=== PATIENT | male | born 1975 | race African-American/Black ===

== ENCOUNTER 2019-11-20 09:21 | Inpatient (IN) | payer OTHER, SELFPAY ==
[2019-11-20 11:51] VITALS: BMI 22.4
[2019-11-21 06:36] VITALS: BP 102/70; PULSE 78; RESP 16; TEMP 36.4; O2SAT 99
[2019-11-21 07:00] VITALS: BMI 45.0
[2019-11-21] MEDS: PARoxetine HCL 20 MG TABLET PO (10:28)
[2019-11-21] MEDS: hydrOXYzine HCL 50 MG TABLET 100 MG PO ×2 (10:29→20:22)
[2019-11-21] MEDS: QUEtiapine Fumarate 100 MG TABLET PO ×2 (10:29→20:22)
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
[2019-11-21 15:33] VITALS: BP 108/66; PULSE 67
[2019-11-21 16:57] VITALS: BP 118/71; PULSE 70; TEMP 37
[2019-11-21] MEDS: traZODone HCL 100 MG TABLET 300 MG PO (20:23)
[2019-11-22 06:12] VITALS: BP 122/69; PULSE 78; RESP 16; TEMP 36.8; O2SAT 98
[2019-11-22] MEDS: hydrOXYzine HCL 50 MG TABLET 100 MG PO ×2 (08:49→21:25)
[2019-11-22] MEDS: QUEtiapine Fumarate 100 MG TABLET PO ×2 (08:49→21:26)
[2019-11-22] MEDS: PARoxetine HCL 20 MG TABLET PO (08:49)
[2019-11-22 12:00] VITALS: BP 120/80; PULSE 87
--- NOTE | 2019-11-22 15:15 | PC.NURSE ---
PT SIGNED A 3 DAY NOTICE ON , UP ON 11/25
[2019-11-22 16:00] VITALS: BP 110/74; PULSE 74; TEMP 37
--- NOTE | 2019-11-22 19:20 | P.PNPSI_ITS ---
Assessment & Plan Assessment & Plan (1) Major depression: Qualifiers: Major depression recurrence: recurrent Active/Remission status: currently active Major depression episode severity: severe Psychotic features: without psychotic features Qualified Code(s): F33.2 - Major depressive disorder, recurrent severe without psychotic features Status: Acute Code(s): F32.9 - Major depressive disorder, single episode, unspecified Assessment and Plan: Improved in his mood CT medication without change (2) Suicidal ideation: Status: Resolved Code(s): R45.851 - Suicidal ideations Greater than 50% of the session was spent on counseling and/or coordination of care Patient educated on: diagnosis Informed Consent: further education needed Reason for contiued inpatient stay Substantial Risk for: rapid decompensation and med/psych decompensation Subjective Subjective Date of Service: 11/22/19 Reason For Visit: MAJOR DEPRESSIVE DISORDER Subjective Notes: Conditional Voluntary and 3 Day (Exp 11/26/19) Interim History: Mike reports that he is feeling well and he has no complaints. He wants to go home. He has no Si Medication Compliance: Yes Side effects from medications: No Attending Groups: No Review of Systems Acute medical concerns: No Medical Review of Systems: unchanged Mental Status Exam Mental Status Exam Patient Appearance: Well Grooomed Patient Orientation: Person Patient Behavior: Appropriate, Passive, Avoidant and Good Eye Contact Mood Description: Calm and Apprehensive Affect Description: Calm and Apprehensive Patient Cognition Impaired: No Ability to Follow Directions: Fair Speech Pattern: Clear, Normal for Patient (Seen with an granite worker) and Soft- Spoken Memory Description: Intact Hallucinations: None Delusions: Not Present Thought Process: Intact Thought Content: positive for Intact, positive for Poverty of Content, positive for Suicidal Ideation (NONE) and positive for Homicidal Ideation (None) Judgement: Fair Judgement and Insight: Limited Diagnostics Vital Signs (24Hr): Vital Signs - 24 hr 11/22/19 06:12 11/22/19 12:00 11/22/19 16:00 Temperature 98.3 F 98.6 F Pulse Rate 78 87 74 Respiratory Rate 16 Blood Pressure 122/69 120/80 110/74 Pulse Oximetry 98 Body Mass Index 45.0 Medications Medications Current Medications Generic Name Dose Route Start Last Admin Trade Name Freq PRN Reason Stop Dose Admin Acetaminophen 650 mg 11/21/19 00:00 Acetaminophen 325 Mg Tablet PO Q6H PRN HeadachePain, Mild (Scale 1-3) Al Hydroxide/Mg Hydroxide 30 ml 11/21/19 00:00 Magnesium Hydrox/Alum Hydrox 30 Ml Oral.Susp PO Q6H PRN Heartburn/Nausea Hydroxyzine HCl 100 mg 11/21/19 09:00 11/22/19 08:49 Hydroxyzine Hcl 50 Mg Tablet PO 100 mg BID JASWINDER Administration Magnesium Hydroxide 30 ml 11/21/19 00:00 Milk Of Magnesia 30 Ml Oral.Susp PO Q24H PRN Constipation Nicotine Polacrilex 2 mg 11/21/19 00:00 Nicotine Polacrilex 2 Mg Gum BUCCAL Q2H PRN Nicotine Cravings Paroxetine HCl 20 mg 11/21/19 09:00 11/22/19 08:49 Paroxetine Hcl 20 Mg Tablet PO 20 mg DAILY JASWINDER Administration Quetiapine Fumarate 100 mg 11/21/19 09:00 11/22/19 08:49 Quetiapine Fumarate 100 Mg Tablet PO 100 mg BID JASWINDER Administration Trazodone HCl 300 mg 11/21/19 21:00 11/21/19 20:23 Trazodone Hcl 100 Mg Tablet PO 300 mg BEDTIME JASWINDER Administration Allergies Allergies Allergy/AdvReac Type Severity Reaction Status Date / Time No Known Allergies* Allergy Uncoded 11/19/19 20:09
[2019-11-22 20:00] VITALS: BP 118/79; PULSE 85; TEMP 37.2
[2019-11-22] MEDS: traZODone HCL 100 MG TABLET 300 MG PO (21:25)
--- NOTE | 2019-11-23 | XR_ITS ---
EXAMINATION: XR ABDOMEN KUB CLINICAL INDICATION: Question obstruction. COMPARISON: None TECHNIQUE: AP view of the abdomen. FINDINGS: There is a nonobstructive bowel gas pattern. There is moderate stool burden in the colon. No abnormal calcifications are demonstrated. The lung bases are clear. No bony abnormality is evident. IMPRESSION: No obstruction. Moderate stool burden.
[2019-11-23 07:26] VITALS: BP 129/76; PULSE 70; RESP 18; TEMP 36.8
[2019-11-23] MEDS: Magnesium Hydrox/Alum Hydrox 30 ML ORAL.SUSP PO (09:23)
[2019-11-23] MEDS: hydrOXYzine HCL 50 MG TABLET 100 MG PO ×2 (09:23→22:52)
[2019-11-23] MEDS: QUEtiapine Fumarate 100 MG TABLET PO ×2 (09:24→22:57)
[2019-11-23] MEDS: Acetaminophen 325 MG TABLET 650 MG PO ×2 (09:24→15:57)
[2019-11-23] MEDS: PARoxetine HCL 20 MG TABLET PO (09:25)
[2019-11-23] MEDS: Milk of Magnesia 30 ML ORAL.SUSP PO (09:27)
[2019-11-23 12:00] VITALS: BP 131/86; PULSE 92; TEMP 36.8
--- NOTE | 2019-11-23 12:14 | HO.PSYCHPN ---
Assessment & Plan Assessment & Plan (1) Major depression: Qualifiers: Active/Remission status: currently active Major depression episode severity: severe Major depression recurrence: recurrent Psychotic features: without psychotic features Qualified Code(s): F33.2 - Major depressive disorder, recurrent severe without psychotic features Status: Acute Code(s): F32.9 - Major depressive disorder, single episode, unspecified Assessment and Plan: continue current meds (2) Substance abuse: Status: Acute Code(s): F19.10 - Other psychoactive substance abuse, uncomplicated Assessment and Plan: denies any craving or withdrawl (3) Suicidal ideation: Status: Resolved Code(s): R45.851 - Suicidal ideations Assessment and Plan: denies current si thinking- (4) Constipation: Status: Acute Code(s): K59.00 - Constipation, unspecified Assessment and Plan: kub - ok n/v inc tem reviewed hx of gi issues had work up and was to be taking gerd med but wasn't taking yet- Greater than 50% of the session was spent on counseling and/or coordination of care Subjective Subjective Date of Service: 11/23/19 Reason For Visit: MAJOR DEPRESSIVE DISORDER Subjective Notes: 3 Day Interim History: Pt not feeling well physically , not eating, fever and had been complaining of n/v and consitpation Medication Compliance: Yes Side effects from medications: Yes (? constipation /gi se) Attending Groups: Intermittent (not very engaged in mileu- mostly somatic complaints) Mental Status Exam Mental Status Exam Narrative: denies current si/hi/ah Patient Appearance: Well Grooomed Patient Orientation: Person, Place and Time Level of Consciousness: Awake Patient Behavior: Appropriate, Cooperative and Anxious Mood Description: Appropriate and Anxious Affect Description: Depressed Patient Cognition Impaired: No Ability to Follow Directions: Good Speech Pattern: Clear Memory Description: Normal for Patient Hallucinations: None Delusions: Not Present Thought Process: Intact Thought Content: positive for Poverty of Content (somatic focus- not feeling well) Depressive Symptoms: Changes in Appetite (loss of appetite today) and Unexplained Stomach Pain (kub was moderate stool - decrease apt, nause, no bm several days) Judgement: Fair Diagnostics Vital Signs (24Hr): Vital Signs - 24 hr 11/22/19 16:00 11/22/19 20:00 11/23/19 07:26 Temperature 98.6 F 99.0 F 98.2 F Pulse Rate 74 85 70 Respiratory Rate 18 Blood Pressure 110/74 118/79 129/76 Body Mass Index 45.0 Labs Results: 11/24/19 07:52 11/24/19 07:52 Medications Medications Current Medications Generic Name Dose Route Start Last Admin Trade Name Freq PRN Reason Stop Dose Admin Acetaminophen 650 mg 11/21/19 00:00 11/23/19 09:24 Acetaminophen 325 Mg Tablet PO 650 mg Q6H PRN Administration HeadachePain, Mild (Scale 1-3) Al Hydroxide/Mg Hydroxide 30 ml 11/21/19 00:00 11/23/19 09:23 Magnesium Hydrox/Alum Hydrox 30 Ml Oral.Susp PO 30 ml Q6H PRN Administration Heartburn/Nausea Hydroxyzine HCl 100 mg 11/21/19 09:00 11/23/19 09:23 Hydroxyzine Hcl 50 Mg Tablet PO 100 mg BID JASWINDER Administration Magnesium Hydroxide 30 ml 11/21/19 00:00 11/23/19 09:27 Milk Of Magnesia 30 Ml Oral.Susp PO 30 ml Q24H PRN Administration Constipation Nicotine Polacrilex 2 mg 11/21/19 00:00 Nicotine Polacrilex 2 Mg Gum BUCCAL Q2H PRN Nicotine Cravings Paroxetine HCl 20 mg 11/21/19 09:00 11/23/19 09:25 Paroxetine Hcl 20 Mg Tablet PO 20 mg DAILY JASWINDER Administration Quetiapine Fumarate 100 mg 11/21/19 09:00 11/23/19 09:24 Quetiapine Fumarate 100 Mg Tablet PO 100 mg BID JASWINDER Administration Trazodone HCl 300 mg 11/21/19 21:00 11/22/19 21:25 Trazodone Hcl 100 Mg Tablet PO 300 mg BEDTIME JASWINDER Administration Allergies Allergies Allergy/AdvReac Type Severity Reaction Status Date / Time No Known Allergies* Allergy Uncoded 11/19/19 20:09
[2019-11-23 16:00] VITALS: BP 123/88; PULSE 77; TEMP 37.1
[2019-11-23 19:30] VITALS: BP 142/86; PULSE 77; TEMP 37.2
[2019-11-23] MEDS: Omeprazole 20 MG CAPSULE.DR PO (20:04)
[2019-11-23 21:57] VITALS: BP 127/88; PULSE 64
[2019-11-23 22:35] VITALS: BP 128/90; BP 137/80; PULSE 72; PULSE 87
[2019-11-23] MEDS: traZODone HCL 100 MG TABLET 300 MG PO (22:56)
[2019-11-24 00:25] LABS: SARS COV2 PCR INHOUSE NEGATIVE (Negative)
[2019-11-24 05:20] VITALS: BP 143/91; PULSE 109; RESP 16; TEMP 37.2; O2SAT 96
[2019-11-24 08:00] VITALS: BP 128/84; PULSE 77; RESP 16; TEMP 36.6; O2SAT 98
[2019-11-24 08:20] LABS: MANUAL DIFF FLAG NO
[2019-11-24 08:35] LABS: Basophils Percent Auto 0.3 % (0-2); Eosinophils Percent Auto 0.1 % (0-4); Hematocrit 43.3 % (42-52); Hemoglobin 14.6 g/dl (14.0-18.0); Imm Gran Abs Auto 0.01 X10*3/uL (0.00-0.03); Imm Gran Pct Auto 0.1 % (0.0-0.4); Lymphocytes Absolute Auto 1.5 X10*3/uL (1.2-4.9); Lymphocytes Percent Auto 22.1 % (20-40); Mean Corpuscular HGB Conc 33.7 g/dl (31.0-36.0); Mean Corpuscular Hemoglobin 28.7 pg (27.0-33.0); Mean Corpuscular Volume 85.2 fL (80-98); Mean Platelet Volume 10.3 fL (9.4-12.4); Monocytes Absolute Auto 0.9 X10*3/uL (0.1-1.2); Monocytes Percent Auto 13.4 % (2-11); Neutrophils Absolute Auto 4.4 X10*3/uL (2.0-8.3); Platelet Count 262 X10*3/uL (160-400); Red Blood Count 5.08 X10*6/uL (4.60-5.80); Red Cell Distribution Width 12.8 % (11.0-16.0); White Blood Count 6.8 X10*3/uL (4.8-10.8)
[2019-11-24 08:59] LABS: Anion Gap 12 (12-20); Blood Urea Nitrogen 18 mg/dL (9-16); Calcium 10.2 mg/dL (8.4-10.2); Carbon Dioxide 33 mmol/L (22-29); Chloride 97 mmol/L (96-108); Cholesterol 215 mg/dL; Creatinine Clr Calc Pharmacy 91.3; Estimated Glomerular Filt Rate > 60; Glucose Random 105 mg/dL (60-115); HDL Cholesterol 47 mg/dL; LDL Cholesterol Calculated 138 mg/dl; Potassium 4.2 mmol/l (3.3-5.1); Sodium 138 mmol/L (135-145); Triglycerides 153 mg/dL
[2019-11-24 09:03] LABS: Estimated Average Glucose 103 mg/dL; Hemoglobin A1c % 5.2 %
--- NOTE | 2019-11-24 09:46 | P.CONIM_ITS ---
History of Present Illness Data of Consult Service Date: 11/24/19 Requesting physician: Kathryn Marti Primary Care Provider: None Physician HPI Reason for consult: fever, GI symptoms This is a 44-year-old Faroese-speaking male admitted to for management of suicidal ideation. The hospitalists were asked to evaluate the patient due to fever and GI symptoms. The patient reports he had several episodes of vomiting yesterday with associated generalized weakness. He denies any associated abdominal pain, fever, chills. He has no associated diarrhea. In fact he denies of bowel movement for the past 1 week. He reports not eating well for the past several days. Lab work was obtained is within normal limits but no leukocytosis. Patient did have low-grade fever of 99.0 overnight which has resolved. He has received Zofran and vomiting is improving. He reports feeling better today. Review of Systems Review of Systems: Yes all other systems are reviewed and are negative Constitutional: Constitutional: Denies chills and Denies fever(s) Cardiovascular: Cardiovascular: Denies chest pain Gastrointestinal: Gastrointestinal: Denies abdominal pain [facility] Medical History (Updated 11/24/19 @ 10:01 by CHESTER Morris) Major depression Substance abuse Functional capacity: independent ambulation Pertinent family history: Mother has a history of diabetes Surgical History (Updated 11/24/19 @ 09:58 by CHESTER Morris) No history of previous surgery Social History (Updated 11/24/19 @ 09:59 by CHESTER Morris) Substance Use Type: Marijuana service: No Sexual orientation: Straight/Heterosexual Meds Allergies Allergy/AdvReac Type Severity Reaction Status Date / Time No Known Allergies* Allergy Uncoded 11/19/19 20:09 Home Medications Medication Instructions Recorded Confirmed Type buprenorphine-naloxone [Suboxone] 1 film BUCCAL DAILY 11/20/19 11/20/19 History hydroxyzine pamoate [Vistaril] 100 mg PO BID 11/20/19 11/20/19 History paroxetine HCl [Paxil] 20 mg PO DAILY 11/20/19 11/20/19 History quetiapine [Seroquel] 100 mg PO BID 11/20/19 11/20/19 History trazodone 300 mg PO BEDTIME 11/20/19 11/20/19 History Physical Exam Vital Signs and Narrative: Vital Signs: Last Vital Signs Temp 97.8 F 11/24/19 08:00 Pulse 77 11/24/19 08:00 Resp 16 11/24/19 08:00 BP 128/84 11/24/19 08:00 Pulse Ox 98 11/24/19 08:00 Body Mass Index 45.0 Const: Nutritional Appearance: well nourished Orientation/consciousness: patient oriented x3 HENMT: Head: Yes normocephalic and Yes atraumatic Eyes: Sclerae: sclerae normal Chest: Chest palpation & inspection: normal inspection of the chest Resp: Effort & Inspection: normal respiratory effort and no respiratory distress Auscultation: clear to auscultation bilaterally Cardio: Rate: regular rate Rhythm: regular rhythm GI: Palpation (GI): Soft to palpation and nontender Neuro: General: patient oriented x3 Cranial nerves: Yes CN's II-XII intact bilaterally and Yes Bilaterally intact EOM present Results Labs Labs: Laboratory Tests 11/23/19 11/24/19 11/24/19 Unknown 07:52 07:52 WBC 6.8 RBC 5.08 Hgb 14.6 Hct 43.3 MCV 85.2 MCH 28.7 MCHC 33.7 RDW 12.8 Plt Count 262 MPV 10.3 Immature Gran % (Auto) 0.1 Neut % (Auto) 64.0 Lymph % (Auto) 22.1 [place] % (Auto) 13.4 H Eos % (Auto) 0.1 Baso % (Auto) 0.3 Neut # (Auto) 4.4 Lymph # (Auto) 1.5 [place] # (Auto) 0.9 Eos # (Auto) 0.0 Baso # (Auto) 0.0 Abs Immat Gran (auto) 0.01 Absolute Nucleated RBC 0.000 Nucleated RBC % (auto) 0.0 Sodium 138 Potassium 4.2 Chloride 97 Carbon Dioxide 33 H Anion Gap 12 BUN 18 H Creatinine 1.20 Estim Creat Clear Calc 91.3 Estimated GFR > 60 Random Glucose 105 Estimat Average Glucose Hemoglobin A1c % Calcium 10.2 Triglycerides 153 Cholesterol 215 LDL Cholesterol, Calc 138 HDL Cholesterol 47 Coronavirus (PCR) NEGATIVE 11/24/19 07:52 WBC RBC Hgb Hct MCV MCH MCHC RDW Plt Count MPV Immature Gran % (Auto) Neut % (Auto) Lymph % (Auto) [place] % (Auto) Eos % (Auto) Baso % (Auto) Neut # (Auto) Lymph # (Auto) [place] # (Auto) Eos # (Auto) Baso # (Auto) Abs Immat Gran (auto) Absolute Nucleated RBC Nucleated RBC % (auto) Sodium Potassium Chloride Carbon Dioxide Anion Gap BUN Creatinine Estim Creat Clear Calc Estimated GFR Random Glucose Estimat Average Glucose 103 Hemoglobin A1c % 5.2 Calcium Triglycerides Cholesterol LDL Cholesterol, Calc HDL Cholesterol Coronavirus (PCR) Imaging Abdominal x-ray: Radiologist's impression: IMPRESSION: No obstruction. Moderate stool burden. Assessment and Plan (1) Constipation: Qualifiers: Constipation type: unspecified constipation type Qualified Code(s): K59.00 - Constipation, unspecified Status: Acute This is a 44-year-old male admitted to for management of depression suicidal ideation with complaints of vomiting and constipation. vomiting. improving. continue p.r.n. Zofran encourage p.o. fluid as tolerated constipation No abdominal pain KUB shows moderate stool without obstruction Miralax daily, continue MOM prn thank you for allowing us to participate in the care of this patient. This case was discussed with Dr. Davison date of service 11/24/2019
[2019-11-24] MEDS: Milk of Magnesia 30 ML ORAL.SUSP PO (10:10)
[2019-11-24] MEDS: PARoxetine HCL 20 MG TABLET PO (10:10)
[2019-11-24] MEDS: hydrOXYzine HCL 50 MG TABLET 100 MG PO ×2 (10:10→20:30)
[2019-11-24] MEDS: QUEtiapine Fumarate 100 MG TABLET PO ×2 (10:10→20:30)
[2019-11-24] MEDS: polyethylene glycoL 3350 17 GM POWD.PACK PO (10:13)
--- NOTE | 2019-11-24 12:34 | P.PNPSI_ITS ---
Assessment & Plan Assessment & Plan (1) Substance abuse: Status: Acute Code(s): F19.10 - Other psychoactive substance abuse, uncomplicated Assessment and Plan: denies cravings (2) Major depression: Qualifiers: Active/Remission status: currently active Major depression episode severity: severe Major depression recurrence: recurrent Psychotic features: without psychotic features Qualified Code(s): F33.2 - Major depressive disorder, recurrent severe without psychotic features Status: Acute Code(s): F32.9 - Major depressive disorder, single episode, unspecified Assessment and Plan: si resolved (3) Constipation: Qualifiers: Constipation type: unspecified constipation type Qualified Code(s): K59.00 - Constipation, unspecified Status: Acute Code(s): K59.00 - Constipation, unspecified Assessment and Plan: will fu with gi/pcp will take mirlax Greater than 50% of the session was spent on counseling and/or coordination of care Subjective Subjective Date of Service: 11/24/19 Reason For Visit: MAJOR DEPRESSIVE DISORDER Subjective Notes: 3 Day Interim History: Felling better today, still not eating much but zofran helping n/v seen by hospitalist, no acute abd, no covid Medication Compliance: Yes Side effects from medications: Yes (constipation) Attending Groups: No Review of Systems Acute medical concerns: Yes fever, decrease appetite no longer n/v , started on miralax by hospitalist Review of Systems: see above Mental Status Exam Mental Status Exam Narrative: appropriate- Patient Appearance: Appropriate Patient Orientation: Person, Place, Time and Situation Level of Consciousness: Awake and Alert Patient Behavior: Appropriate Mood Description: Calm (looking forward do dc tomorrow and seeing children) Affect Description: Calm Patient Cognition Impaired: No Ability to Follow Directions: Good Speech Pattern: Clear Memory Description: Intact Hallucinations: None Thought Process: Intact Thought Content: positive for Intact and positive for Goal Oriented Depressive Symptoms: Changes in Appetite and Unexplained Stomach Pain Judgement: Fair Diagnostics Vital Signs (24Hr): Vital Signs - 24 hr 11/23/19 16:00 11/23/19 19:30 11/23/19 21:57 Temperature 98.7 F 99.0 F Pulse Rate 77 77 64 Respiratory Rate Blood Pressure 123/88 142/86 H 127/88 Pulse Oximetry 11/23/19 22:35 11/24/19 05:20 11/24/19 08:00 Temperature 99 F 97.8 F Pulse Rate 87 109 H 77 Respiratory Rate 16 16 Blood Pressure 137/80 143/91 H 128/84 Pulse Oximetry 96 98 Body Mass Index Labs Results: 11/24/19 07:52 11/24/19 07:52 Labs: Laboratory Results - last 48 hr 11/23/19 11/24/19 11/24/19 Unknown 07:52 07:52 WBC 6.8 RBC 5.08 Hgb 14.6 Hct 43.3 MCV 85.2 MCH 28.7 MCHC 33.7 RDW 12.8 Plt Count 262 MPV 10.3 Immature Gran % (Auto) 0.1 Neut % (Auto) 64.0 Lymph % (Auto) 22.1 [place] % (Auto) 13.4 H Eos % (Auto) 0.1 Baso % (Auto) 0.3 Neut # (Auto) 4.4 Lymph # (Auto) 1.5 [place] # (Auto) 0.9 Eos # (Auto) 0.0 Baso # (Auto) 0.0 Abs Immat Gran (auto) 0.01 Absolute Nucleated RBC 0.000 Nucleated RBC % (auto) 0.0 Sodium 138 Potassium 4.2 Chloride 97 Carbon Dioxide 33 H Anion Gap 12 BUN 18 H Creatinine 1.20 Estim Creat Clear Calc 91.3 Estimated GFR > 60 Random Glucose 105 Estimat Average Glucose Hemoglobin A1c % Calcium 10.2 Triglycerides 153 Cholesterol 215 LDL Cholesterol, Calc 138 HDL Cholesterol 47 Coronavirus (PCR) NEGATIVE 11/24/19 07:52 WBC RBC Hgb Hct MCV MCH MCHC RDW Plt Count MPV Immature Gran % (Auto) Neut % (Auto) Lymph % (Auto) [place] % (Auto) Eos % (Auto) Baso % (Auto) Neut # (Auto) Lymph # (Auto) [place] # (Auto) Eos # (Auto) Baso # (Auto) Abs Immat Gran (auto) Absolute Nucleated RBC Nucleated RBC % (auto) Sodium Potassium Chloride Carbon Dioxide Anion Gap BUN Creatinine Estim Creat Clear Calc Estimated GFR Random Glucose Estimat Average Glucose 103 Hemoglobin A1c % 5.2 Calcium Triglycerides Cholesterol LDL Cholesterol, Calc HDL Cholesterol Coronavirus (PCR) Medications Medications Current Medications Generic Name Dose Route Start Last Admin Trade Name Freq PRN Reason Stop Dose Admin Acetaminophen 650 mg 11/21/19 00:00 11/23/19 15:57 Acetaminophen 325 Mg Tablet PO 650 mg Q6H PRN Administration HeadachePain, Mild (Scale 1-3) Al Hydroxide/Mg Hydroxide 30 ml 11/21/19 00:00 11/23/19 09:23 Magnesium Hydrox/Alum Hydrox 30 Ml Oral.Susp PO 30 ml Q6H PRN Administration Heartburn/Nausea Hydroxyzine HCl 100 mg 11/21/19 09:00 11/24/19 10:10 Hydroxyzine Hcl 50 Mg Tablet PO 100 mg BID JASWINDER Administration Magnesium Citrate 150 ml 11/23/19 19:49 Magnesium Citrate 300 Ml Solution PO BID PRN constipation Magnesium Hydroxide 30 ml 11/21/19 00:00 11/24/19 10:10 Milk Of Magnesia 30 Ml Oral.Susp PO 30 ml Q24H PRN Administration Constipation Nicotine Polacrilex 2 mg 11/21/19 00:00 Nicotine Polacrilex 2 Mg Gum BUCCAL Q2H PRN Nicotine Cravings Ondansetron HCl 4 mg 11/23/19 13:33 11/24/19 08:51 Ondansetron Odt 4 Mg Tab.Rapdis TRANSLINGU 4 mg Q6H PRN Administration nausea Paroxetine HCl 20 mg 11/21/19 09:00 11/24/19 10:10 Paroxetine Hcl 20 Mg Tablet PO 20 mg DAILY JASWINDER Administration Polyethylene Glycol 17 gm 11/24/19 10:15 11/24/19 10:13 Polyethylene Glycol 3350 17 Gm Powd.Pack PO 17 gm DAILY JASWINDER Administration Prochlorperazine 25 mg 11/23/19 23:17 Prochlorperazine 25 Mg Supp.Rect [place] Q12H PRN nausea/vomiting Quetiapine Fumarate 100 mg 11/21/19 09:00 11/24/19 10:10 Quetiapine Fumarate 100 Mg Tablet PO 100 mg BID JASWINDER Administration Trazodone HCl 300 mg 11/21/19 21:00 11/23/19 22:56 Trazodone Hcl 100 Mg Tablet PO 300 mg BEDTIME JASWINDER Administration Allergies Allergies Allergy/AdvReac Type Severity Reaction Status Date / Time No Known Allergies* Allergy Uncoded 11/19/19 20:09
[2019-11-24 16:00] VITALS: BP 119/89; PULSE 106; TEMP 36.8
[2019-11-24 18:45] VITALS: BP 119/89; PULSE 106; RESP 16; TEMP 36.8; O2SAT 99
[2019-11-24] MEDS: traZODone HCL 100 MG TABLET 300 MG PO (20:30)
[2019-11-25 06:45] VITALS: BP 145/87; PULSE 102; RESP 18; TEMP 36.7
[2019-11-25] MEDS: hydrOXYzine HCL 50 MG TABLET 100 MG PO ×2 (09:03→22:09)
[2019-11-25] MEDS: PARoxetine HCL 20 MG TABLET PO (09:04)
[2019-11-25] MEDS: QUEtiapine Fumarate 100 MG TABLET PO ×2 (09:04→22:09)
--- NOTE | 2019-11-25 09:42 | P.PNPSI_ITS ---
Assessment & Plan Assessment & Plan (1) Substance abuse: Status: Acute Code(s): F19.10 - Other psychoactive substance abuse, uncomplicated Assessment and Plan: Refer to suboxone (2) Major depression: Qualifiers: Major depression recurrence: recurrent Active/Remission status: currently active Major depression episode severity: severe Psychotic features: without psychotic features Qualified Code(s): F33.2 - Major depressive disorder, recurrent severe without psychotic features Status: Acute Code(s): F32.9 - Major depressive disorder, single episode, unspecified Assessment and Plan: CT medications Greater than 50% of the session was spent on counseling and/or coordination of care Subjective Subjective Date of Service: 11/25/19 Reason For Visit: MAJOR DEPRESSIVE DISORDER Subjective Notes: 3 Day Interim History: Mike was disappointed that he was not being DC. This was because there was no collateral from his family. He has been in behavioral control, and has been taking his medications. He is asking for a referral to a suboxone clnic. Medication Compliance: Yes Side effects from medications: No Attending Groups: Intermittent Review of Systems Acute medical concerns: No Medical Review of Systems: unchanged Mental Status Exam Mental Status Exam Patient Appearance: Well Grooomed Patient Orientation: Person and Place Level of Consciousness: Awake Patient Behavior: Appropriate Mood Description: Calm Affect Description: Calm Patient Cognition Impaired: No Ability to Follow Directions: Fair Speech Pattern: Clear Memory Description: Intact Hallucinations: None Thought Process: Intact Thought Content: positive for Suicidal Ideation (No) and positive for Homicidal Ideation (No) Judgement: Fair Diagnostics Vital Signs (24Hr): Vital Signs - 24 hr 11/24/19 16:00 11/24/19 18:45 11/25/19 06:45 Temperature 98.3 F 98.3 F 98.0 F Pulse Rate 106 H 106 H 102 H Respiratory Rate 16 18 Blood Pressure 119/89 119/89 145/87 H Pulse Oximetry 99 Body Mass Index 45.0 Labs Results: 11/24/19 07:52 11/24/19 07:52 Labs: Laboratory Results - last 48 hr 11/23/19 11/24/19 11/24/19 Unknown 07:52 07:52 WBC 6.8 RBC 5.08 Hgb 14.6 Hct 43.3 MCV 85.2 MCH 28.7 MCHC 33.7 RDW 12.8 Plt Count 262 MPV 10.3 Immature Gran % (Auto) 0.1 Neut % (Auto) 64.0 Lymph % (Auto) 22.1 [place] % (Auto) 13.4 H Eos % (Auto) 0.1 Baso % (Auto) 0.3 Neut # (Auto) 4.4 Lymph # (Auto) 1.5 [place] # (Auto) 0.9 Eos # (Auto) 0.0 Baso # (Auto) 0.0 Abs Immat Gran (auto) 0.01 Absolute Nucleated RBC 0.000 Nucleated RBC % (auto) 0.0 Sodium 138 Potassium 4.2 Chloride 97 Carbon Dioxide 33 H Anion Gap 12 BUN 18 H Creatinine 1.20 Estim Creat Clear Calc 91.3 Estimated GFR > 60 Random Glucose 105 Estimat Average Glucose Hemoglobin A1c % Calcium 10.2 Triglycerides 153 Cholesterol 215 LDL Cholesterol, Calc 138 HDL Cholesterol 47 Coronavirus (PCR) NEGATIVE 11/24/19 07:52 WBC RBC Hgb Hct MCV MCH MCHC RDW Plt Count MPV Immature Gran % (Auto) Neut % (Auto) Lymph % (Auto) [place] % (Auto) Eos % (Auto) Baso % (Auto) Neut # (Auto) Lymph # (Auto) [place] # (Auto) Eos # (Auto) Baso # (Auto) Abs Immat Gran (auto) Absolute Nucleated RBC Nucleated RBC % (auto) Sodium Potassium Chloride Carbon Dioxide Anion Gap BUN Creatinine Estim Creat Clear Calc Estimated GFR Random Glucose Estimat Average Glucose 103 Hemoglobin A1c % 5.2 Calcium Triglycerides Cholesterol LDL Cholesterol, Calc HDL Cholesterol Coronavirus (PCR) Medications Medications Current Medications Generic Name Dose Route Start Last Admin Trade Name Freq PRN Reason Stop Dose Admin Acetaminophen 650 mg 11/21/19 00:00 11/23/19 15:57 Acetaminophen 325 Mg Tablet PO 650 mg Q6H PRN Administration HeadachePain, Mild (Scale 1-3) Al Hydroxide/Mg Hydroxide 30 ml 11/21/19 00:00 11/23/19 09:23 Magnesium Hydrox/Alum Hydrox 30 Ml Oral.Susp PO 30 ml Q6H PRN Administration Heartburn/Nausea Hydroxyzine HCl 100 mg 11/21/19 09:00 11/25/19 09:03 Hydroxyzine Hcl 50 Mg Tablet PO 100 mg BID JASWINDER Administration Magnesium Citrate 150 ml 11/23/19 19:49 Magnesium Citrate 300 Ml Solution PO BID PRN constipation Magnesium Hydroxide 30 ml 11/21/19 00:00 11/24/19 10:10 Milk Of Magnesia 30 Ml Oral.Susp PO 30 ml Q24H PRN Administration Constipation Nicotine Polacrilex 2 mg 11/21/19 00:00 Nicotine Polacrilex 2 Mg Gum BUCCAL Q2H PRN Nicotine Cravings Ondansetron HCl 4 mg 11/23/19 13:33 11/24/19 08:51 Ondansetron Odt 4 Mg Tab.Rapdis TRANSLINGU 4 mg Q6H PRN Administration nausea Paroxetine HCl 20 mg 11/21/19 09:00 11/25/19 09:04 Paroxetine Hcl 20 Mg Tablet PO 20 mg DAILY JASWINDER Administration Polyethylene Glycol 17 gm 11/24/19 10:15 11/25/19 09:03 Polyethylene Glycol 3350 17 Gm Powd.Pack PO Not Given DAILY JASWINDER Prochlorperazine 25 mg 11/23/19 23:17 Prochlorperazine 25 Mg Supp.Rect DE Q12H PRN nausea/vomiting Quetiapine Fumarate 100 mg 11/21/19 09:00 11/25/19 09:04 Quetiapine Fumarate 100 Mg Tablet PO 100 mg BID JASWINDER Administration Trazodone HCl 300 mg 11/21/19 21:00 11/24/19 20:30 Trazodone Hcl 100 Mg Tablet PO 300 mg BEDTIME JASWINDER Administration Allergies Allergies Allergy/AdvReac Type Severity Reaction Status Date / Time No Known Allergies* Allergy Uncoded 11/19/19 20:09
[2019-11-25 12:00] VITALS: BP 121/85; PULSE 89
[2019-11-25 16:00] VITALS: BP 110/76; RESP 16; O2SAT 97
[2019-11-25] MEDS: traZODone HCL 100 MG TABLET 300 MG PO (22:09)
[2019-11-26 05:15] VITALS: BP 119/77; PULSE 136; RESP 16; TEMP 36.9; O2SAT 99
[2019-11-26 07:17] VITALS: PULSE 78; RESP 16; O2SAT 99
[2019-11-26 09:25] LABS: Estimated Average Glucose 103 mg/dL; Hemoglobin A1c % 5.2 %
[2019-11-26] MEDS: hydrOXYzine HCL 50 MG TABLET 100 MG PO (09:33)
[2019-11-26] MEDS: PARoxetine HCL 20 MG TABLET PO (09:33)
[2019-11-26] MEDS: QUEtiapine Fumarate 100 MG TABLET PO (11:07)
[2019-11-26 11:27] LABS: Cholesterol 222 mg/dL; HDL Cholesterol 52 mg/dL; LDL Cholesterol Calculated 138 mg/dl; Triglycerides 162 mg/dL
--- NOTE | 2019-11-28 20:03 | P.DS_ITS ---
DS: Providers Provider Date of admission: 11/20/19 09:21 Primary care physician: None Physician Attending physician on admission: Whitney Espinal Consults: 11/20/19 23:40 Consult to Crisis Routine Reason for consultation: si Has provider been notified: Yes 11/23/19 21:54 Consult to Hospitalist Stat Consulting Provider: Physician,Inpatient Reason for consultation: pt with fever, weak, gi sys Attending physician on discharge: Whitney Espinal Anticipated date of discharge: 11/26/19 DS: Diagnosis Discharge Diagnosis (1) Substance abuse: Status: Acute Problem details: Patient will call the suboxone clinic to re-start suboxone if he chooses. (2) Major depression: Status: Acute Problem details: Mood is much improved Discharge Plan Discharge Patient Disposition: Home, Self-Care Referrals: Paulina Crowe (therapist) [Other] - 11/28/19 12:00 pm (En la oficina) Lalitha (psychiatrist) [Other] - 12/04/19 1:00 pm (En la oficina) DR.LUCIO SIMON [Other] - 11/27/19 3:00 pm [facility] [Other] (Call to set up suboxone) [facility] [Other] (Call to set up Suboxone) Sharon Simon PA [Physician Aviation Technician] - Discharge Medications: Continued hydroxyzine pamoate 100 mg Capsule 100 mg PO BID Qty: 60 RF: 0 quetiapine [Seroquel] 100 mg Tablet 100 mg PO BID Qty: 60 RF: 0 paroxetine HCl [Paxil] 20 mg Tablet 20 mg PO DAILY Qty: 30 RF: 0 trazodone 300 mg Tablet 300 mg PO BEDTIME 30 Days Qty: 0 RF: 0 Discontinued buprenorphine-naloxone [Suboxone] 8-2 mg Film 1 film BUCCAL DAILY RF: 0 Discharge Orders: Discharge Order (Routine); Ordered 11/26/19 Ordered By: Whitney Espinal Diet: advance to your usual diet Activity on Discharge: As tolerated Stand Alone Forms: Community Support Discharge Date/Time: 11/26/19 13:26 Visit Report Forms: Patient Portal Discharge page Care Plan Goals: Reduce depression' Stay sober Health Concerns: Suicidal thinking Plan of Treatment: Stay on medication Go to your appointment Mental Status Exam Mental Status Exam Patient Appearance: Well Grooomed Patient Orientation: Person, Place, Time and Situation Level of Consciousness: Awake Patient Behavior: Appropriate Mood Description: Calm Affect Description: Calm Patient Cognition Impaired: No Ability to Follow Directions: Fair Speech Pattern: Clear Memory Description: Intact Hallucinations: None Delusions: Not Present Thought Process: Intact Thought Content: negative for Suicidal Ideation and negative for Homicidal Ideation Judgement: Fair Data Data Completed and Pending Completed studies during hospitalization [Text1]: 11/23/19 11/24/19 11/24/19 Unknown 07:52 07:52 WBC 6.8 RBC 5.08 Hgb 14.6 Hct 43.3 MCV 85.2 MCH 28.7 MCHC 33.7 RDW 12.8 Plt Count 262 MPV 10.3 Immature Gran % (Auto) 0.1 Neut % (Auto) 64.0 Lymph % (Auto) 22.1 [place] % (Auto) 13.4 H Eos % (Auto) 0.1 Baso % (Auto) 0.3 Neut # (Auto) 4.4 Lymph # (Auto) 1.5 [place] # (Auto) 0.9 Eos # (Auto) 0.0 Baso # (Auto) 0.0 Abs Immat Gran (auto) 0.01 Absolute Nucleated RBC 0.000 Nucleated RBC % (auto) 0.0 Sodium 138 Potassium 4.2 Chloride 97 Carbon Dioxide 33 H Anion Gap 12 BUN 18 H Creatinine 1.20 Estim Creat Clear Calc 91.3 Estimated GFR > 60 Random Glucose 105 Estimat Average Glucose Hemoglobin A1c % Calcium 10.2 Triglycerides 153 Cholesterol 215 LDL Cholesterol, Calc 138 HDL Cholesterol 47 Coronavirus (PCR) NEGATIVE 11/24/19 11/26/19 11/26/19 07:52 07:53 07:53 WBC RBC Hgb Hct MCV MCH MCHC RDW Plt Count MPV Immature Gran % (Auto) Neut % (Auto) Lymph % (Auto) [place] % (Auto) Eos % (Auto) Baso % (Auto) Neut # (Auto) Lymph # (Auto) [place] # (Auto) Eos # (Auto) Baso # (Auto) Abs Immat Gran (auto) Absolute Nucleated RBC Nucleated RBC % (auto) Sodium Potassium Chloride Carbon Dioxide Anion Gap BUN Creatinine Estim Creat Clear Calc Estimated GFR Random Glucose Estimat Average Glucose 103 103 Hemoglobin A1c % 5.2 5.2 Calcium Triglycerides 162 Cholesterol 222 LDL Cholesterol, Calc 138 HDL Cholesterol 52 Coronavirus (PCR) DS: Summary Hospital Course Hospital Course: Mike was admitted with SI in the context of a relapse[address] [address] Psychiatry Admission Note (In) HPI Narrative: 44 year old man who was admitted with SI in the context of SI. He presented to the ER and was evaluated by [facility]. Mike reports that he had gone to his therapy and told his therapist that he was not feeling safe. He had an argument with his and that made him feel more depressed and anxious. He stopped taking his prescribed medications. He relapsed with drugs and felt worse. He did not think he could be safe and so he presented for help. He reports that he has been sober for 2 years and that he is upset with himself for using. However he thinks that he can remain sober and realizes that it does not help to use. Mike states that he has had a lot of stresses in the last several weeks, made worse by COVID19. He does feel supported by his therapist. Prior to admission, Mike spent 2 days in the ER. He reports that he feels much better and in fact he would like to go home. For the rest of the details refer to the admission note. Labs are below. Hospital course Mike had been medically cleared in the ER. He was medically stable. He had mild WD. He was admitted on a CV but later signed a 3 day notice. Mike reported that he felt better once he was on the unit. He felt he had got what he needed in the ER. He no longer had thoughts of self harm. He did not initially want to re-start suboxone. He was continued on the same medication he took in the community. He tended to isolate in his room. He did not go to groups. BRENDON was in touch with his who felt that he was at baseline and had no concerns about his going home. On the day of DC he reported that he wants to be on suboxone. He planned to return to the clinic he had previously been enrolled in. Time spent discussing smoking cessation with patient: 3 to 10 minutes Status at Discharge Functional status at discharge: independent ambulation Overall status at discharge: patient is back to baseline Time Spent with Patient Time attestation: Total time spent providing and/or coordinating discharge services: Time spent: Greater than 30 minutes
== END 2019-11-26 13:26 | disposition home or self-care (01) | DRG 751 ==
PROVIDERS: Psychiatry & Neurology Psychiatry; Admitting Provider Psychiatry & Neurology Psychiatry; Visit Provider Psychiatry & Neurology Psychiatry
DX: F33.2 Major depressive disorder, recurrent severe without psychotic features (principal); R45.851 Suicidal ideations; K59.00 Constipation, unspecified; F19.10 Other psychoactive substance abuse, uncomplicated; Z20.828 Contact with and (suspected) exposure to other viral communicable diseases; Z79.899 Other long term (current) drug therapy
CPT/HCPCS: 36415; 74018; 80048; 80051; 80061; 80076; 80307; 81003; 82565; 82947; 83036; 83695; 84520; 85025; 85027; 87635; 93005; 99232; 99285; U0003